=== PATIENT | female | born 1955 | race Two or more races ===

== ENCOUNTER 2020-04-16 18:18 | Outpatient (CLI) | payer OTHER | END 2020-04-16 18:24 | disposition home or self-care (01) | LOC: LAB 18:18 | PROVIDERS: ATTEND Pediatrics | DX: N30.00 Acute cystitis without hematuria (principal) ==

== ENCOUNTER 2022-06-11 15:46 | Emergency (ER) | payer OTHER ==
[~2022-06-11] VITALS: Ht 167.6 cm; Wt 64.4 kg
== END 2022-06-12 00:07 | disposition home or self-care (01) ==
LOC: ER 15:46
DX: S93.692A Other sprain of left foot, initial encounter (principal); X58.XXXA Exposure to other specified factors, initial encounter; Y93.89 Activity, other specified; Y92.89 Other specified places as the place of occurrence of the external cause; M79.672 Pain in left foot